=== PATIENT | female | born 1975 | race Caucasian/White ===

== ENCOUNTER 2017-04-04 00:24 | Emergency (ER) | payer MEDICAID, OTHER ==
[2017-04-04] MEDS: IBUPROFEN 600 MG TAB PO (06:54)
== END 2017-04-04 07:47 | disposition home or self-care (01) ==
LOC: FTE 00:24
DX: R05 Cough (principal); R50.9 Fever, unspecified; R51 Headache; R07.0 Pain in throat
CPT/HCPCS: 71020; 99284-25